=== PATIENT | male | born 1980 | race Caucasian/White ===

== ENCOUNTER 2017-01-07 21:41 | Emergency (ER) | payer BC | END 2017-01-08 03:38 | disposition home or self-care (01) | LOC: ER 21:41 | DX: S81.052A Open bite, left knee, initial encounter (principal); S61.451A Open bite of right hand, initial encounter; J45.909 Unspecified asthma, uncomplicated; E78.00 Pure hypercholesterolemia, unspecified; Z29.14 Encounter for prophylactic rabies immune globulin; Z88.8 Allergy status to other drugs, medicaments and biological substances; W54.0XXA Bitten by dog, initial encounter | CPT/HCPCS: 90675; 96372 ==